=== PATIENT | female | born 1970 ===

== ENCOUNTER 2016-11-02 22:19 | Inpatient (IN) | payer MEDICAID, OTHER ==
[2016-11-02 22:19] VITALS: BMI 19.5
--- NOTE | 2016-11-02 23:27 | ED PDOC ---
HPI: Psych/Substance Abuse Time Seen by Provider: 11/02/16 23:06 Chief Complaint (Nursing): Psychiatric Evaluation Chief Complaint (Provider): Depression History Per: Patient History/Exam Limitations: no limitations Onset/Duration Of Symptoms: Days (21) Current Symptoms Are (Timing): Still Present Suicide/Self Injury Attempted (Context): None Modifying Factor(s): None Severity: Moderate Associated Symptoms: Depression, Suicidal Thoughts. denies: Suicidal Plan Involuntary Hold By: None Additional History Per: Patient Additional Complaint(s): This is a 46 y/o female with history of chronic depression, who presents to the ED this evening complaining of depression x3 weeks. She reports a history of depression, prescribed Zoloft, and was in the care of psychiatry. However, her insurance was discontinued an unknown time ago and she has not been seen by psychiatry or been taking Zoloft as prescribed for that time. Patient reports some suicidal thoughts, none at this time, and denies ever having a plan. She denies any medical complaints. Past Medical History Vital Signs: Last Vital Signs Temp 99.2 F 11/02/16 22:31 Pulse 92 H 11/02/16 22:31 Resp 16 11/02/16 22:31 BP 140/85 11/02/16 22:31 Pulse Ox 98 11/02/16 22:31 - Medical History PMH: Arthritis, Asthma, COPD, Depression, Migraine, Peripheral Edema, Rheumatoid Arthritis, Sleep Apnea (NO C PAP), TIA (LEFT SIDED WEAKNESS ), Chronic Pain (neck) Denies: Chronic Kidney Disease Comment Only: Fractures (TOES) - Surgical History Surgical History: Appendectomy Other surgeries: Tubal Ligation - Family History Family History: States: Unknown Family Hx - Social History Current smoker - smoking cessation education provided: No (Quit 08/03/16) Alcohol: None Drugs: Denies - Immunization History Hx Tetanus Toxoid Vaccination: No Hx Influenza Vaccination: No Hx Pneumococcal Vaccination: No - Allergies Allergies/Adverse Reactions: Allergies Allergy/AdvReac Type Severity Reaction Status Date / Time shellfish derived Allergy RASH Verified 11/02/16 22:31 Review of Systems ROS Statement: Except As Marked, All Systems Reviewed And Found Negative Psych: Positive for: Depression, Suicidal ideation Physical Exam - Reviewed Nursing Documentation Reviewed: Yes Vital Signs Reviewed: Yes - Physical Exam Appears: Positive for: Well, Non-toxic, No Acute Distress Head Exam: Positive for: ATRAUMATIC, NORMAL INSPECTION, NORMOCEPHALIC Skin: Positive for: Normal Color, Warm, DRY Eye Exam: Positive for: Normal appearance, EOMI, PERRL ENT: Positive for: Normal ENT Inspection Neck: Positive for: Normal, Painless ROM Cardiovascular/Chest: Positive for: Regular Rate, Rhythm Respiratory: Positive for: CNT, Normal Breath Sounds Gastrointestinal/Abdominal: Positive for: Normal Exam, Bowel Sounds, Soft Back: Positive for: Normal Inspection Extremity: Positive for: Normal ROM Neurologic/Psych: Positive for: Alert, Oriented, Other (Calm and cooperative. ) - Laboratory Results Result Diagrams: 11/03/16 02:59 11/03/16 02:59 - ECG O2 Sat by Pulse Oximetry: 98 (RA) Pulse Ox Interpretation: Normal Medical Decision Making Medical Decision Making: Initial Impression: Depression Initial Plan: - Crisis evaluation for safety and risk level for suicidal behavior. Vital signs are stable. Labs reviewed. In my opinion there are no current acute medical conditions that contraindicate the placement of this patient in a psychiatric unit. Scribe Attestation: Documented by Nicky Bautista, acting as a scribe for Abhinav Ac MD. Scribe Attestation: All medical record entries made by the Scribe were at my direction and personally dictated by me. I have reviewed the chart and agree that the record accurately reflects my personal performance of the history, physical exam, medical decision making, and the department course for this patient. I have also personally directed, reviewed, and agree with the discharge instructions and disposition. Disposition - Clinical Impression Clinical Impression: Bipolar affective disorder - Patient ED Disposition Is Patient to be Admitted: Yes Doctor Will See Patient In The: Hospital Counseled Patient/Family Regarding: Studies Performed, Diagnosis - Disposition Disposition Time: 03:32 Condition: FAIR - Pt Status Changed To: Hospital Disposition Of: Inpatient - Admit Certification Admit to Inpatient:: After my assessment, the patient will require hospitalization for at least two midnights. This is because of the severity of symptoms shown, intensity of services needed, and/or the medical risk in this patient being treated as an outpatient. - POA Present On Arrival: None
[2016-11-03 03:06] LABS: BASO # 0.1 K/uL (0.0-0.2); BASO % 1.2 % (0.0-2.0); EOS # 0.1 K/uL (0.0-0.7); HEMATOCRIT 31.2 % (34.0-47.0); LYMPH % 43.7 % (20.0-40.0); MEAN CELL VOLUME 89.3 fl (81.0-99.0); MEAN CORPUSCULAR HEMOGLOBIN 30.5 pg (27.0-31.0); MEAN CORPUSCULAR HGB CONC 34.2 g/dL (33.0-37.0); MONO # 0.7 K/uL (0.0-0.8); MONO % 10.1 % (0.0-10.0); NEUT # 2.9 K/uL (1.8-7.0); NRBC % 0.2 % (0.0-0.0); RED CELL DISTRIBUTION WIDTH 14.9 % (11.5-14.5); WHITE BLOOD COUNT 6.8 K/uL (4.8-10.8)
[2016-11-03 03:14] LABS: CHLORIDE 102 mmol/L (98-107); SODIUM 140 mmol/l (132-148)
[2016-11-03 03:15] LABS: POTASSIUM 3.7 MMOL/L (3.6-5.0)
[2016-11-03 03:17] LABS: CARBON DIOXIDE 28 mmol/L (22-30); GFR AFRICAN-AMERICAN > 60
[2016-11-03 03:18] LABS: ALCOHOL SERUM < 10 mg/dl (0-10); BLOOD UREA NITROGEN 13 mg/dl (7-17); CALCIUM 9.1 mg/dL (8.4-10.2); GLUCOSE,RANDOM 91 mg/dL (65-105)
[2016-11-03] MEDS ORDERED: Alum-Mag Hydrox-Simethicone Susp (30 mL) PO PRN (05:45)
[2016-11-03] MEDS ORDERED: DiphenhydrAMINE 50 mg/ml Inj IM PRN (05:45)
[2016-11-03] MEDS ORDERED: Magnesium Hydroxide Susp 30 ml UD PO PRN (05:45)
[2016-11-03] MEDS ORDERED: Pneumococcal 23-Valent Vaccine IM ONE (07:02)
--- NOTE | 2016-11-03 08:26 | CARD ---
APPROVED REPORT EKG Measurement Heart [id number] <Conclusion> Normal sinus rhythm Normal ECG
[2016-11-03 08:29] LABS: T4 4.65 ug/dl (5.5-11.0)
[2016-11-03 08:43] LABS: THYROID STIMULATING HORMONE 59.8 mIU/ML (0.46-4.68)
[2016-11-03 09:01] LABS: IRON 42 ug/dL (37-170)
--- NOTE | 2016-11-03 09:28 | RAD ---
PROCEDURE: CHEST RADIOGRAPH, 1 VIEW HISTORY: clearance COMPARISON: Comparison is made to the previous study dated 06/20/2016 FINDINGS: LUNGS: Clear. PLEURA: No pneumothorax or pleural fluid seen. CARDIOVASCULAR: Normal. OSSEOUS STRUCTURES: No significant abnormalities. VISUALIZED UPPER ABDOMEN: Normal. OTHER FINDINGS: None. IMPRESSION: No active disease.
[2016-11-03 12:30] LABS: CHOLESTEROL 204 mg/dL (0-199)
--- NOTE | 2016-11-03 18:39 | PCM.PSYCH ---
Initial Psychiatric Evaluation - Initial Psychiatric Evaluation Chief Complaint (in patient's own words): was feeling depressed came to emergency room suicidal thoughts without plan Patient's Reaction to Hospitalization: voluntary History of Present Illness and Precipitating Events: presented to [facility] via [facility] er after self presentation for feelings of depression and passing suicidal thoughts, reports was being treated by opd psychiatrist with sertraline 25mg po had stopped 2nd to changes insurance. reportedly was receiving benefits 2nd changes in [employer] [facility] [employer]-reportedly had not been working 2nd to chronic neck and back pain reportedly began after working lifting boxes. Current Medications: Active Medications Generic Name Dose Route Start Last Admin Trade Name Freq PRN Reason Stop Dose Admin Acetaminophen 650 mg 11/03/16 05:45 Tylenol 325mg Tab PO Q4 PRN Pain, moderate (4-7) Al Hydrox/Mg Hydrox/Simethicone 30 ml 11/03/16 05:45 Maalox Plus 30 Ml PO Q4 PRN Dyspepsia Diphenhydramine HCl 50 mg 11/03/16 05:45 Benadryl PO Q6 PRN Extrapyramidal Symptoms Diphenhydramine HCl 50 mg 11/03/16 05:45 Benadryl IM Q6 PRN Extrapyramidal S/S Unable PO Diphenhydramine HCl 50 mg 11/03/16 05:49 Benadryl PO HS PRN Sleep Haloperidol 5 mg 11/03/16 05:45 Haldol PO Q4 PRN Agitation Haloperidol Lactate 5 mg 11/03/16 05:45 Haldol IM Q4 PRN Agitation, Unable to Take PO Lorazepam 2 mg 11/03/16 05:45 Ativan PO Q4 PRN Anxiety/Agitation Lorazepam 2 mg 11/03/16 05:45 Ativan IM Q4 PRN Anxiety/Agitation,Unable PO Magnesium Hydroxide 30 ml 11/03/16 05:45 Milk Of Magnesia PO HS PRN Constipation Sertraline HCl 25 mg 11/03/16 22:00 Zoloft PO DAILY JACK Past Psychiatric History - Past Psychiatric History Prior Professional Help: opd outpt psychiatry Explanation of prior treatment: started seeing community based psychiatrist for depression 2nd changes in lof and reported chronic pain History of Abuse: defers History of ETOH/Drug Use: reports hx of taking various pain medications related to reported hx of neck and back pain Pertinent Medical Hx (Current Medical&Sleep Prob, Allergies): Allergies Allergy/AdvReac Type Severity Reaction Status Date / Time shellfish derived Allergy RASH Verified 11/02/16 22:31 No Known Home Med 11/03/16 Review of Systems - Musculoskeletal Musculoskeletal: Back Pain Additional comments: neck pain - Psychiatric Psychiatric: Depression, Suicidal Ideation Additional comments: contracts for safety Mental Status Examination - Personal Presentation Personal Presentation: Looks stated age, Looks older than stated age - Affect Affect: Constricted - Motor Activity Motor Activity: Calm, Psychomotor Retardation - Reliability in Providing Information Reliability in Providing Information: Fair - Speech Speech: Organized - Mood Mood: Depressed - Formal Thought Process Formal Thought Process: No Impairment - Cognitive Functions Orientation: Person, Place, Situation Sensorium: Alert Attention/Concentration: Attentive Judgement: Imparied, as evidence by: Other - Risk Risk: Suicidal Additional comments: contracts for safety - Strength & Assets Inventory Strength & Assets Inventory: Cooperative - Limitations Additional comments: chronic pain, not receiving benefits DSM 5 DX - DSM 5 DSM 5 Diagnosis: 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 chronic pain neck and back - Recommended/Plan of Treatment Treatment Recommendations and Plan of Treatment: admission per attending md vital signs and clinical observations per protocol and per clinical status start sertraline 25mg po daily adjust medications per status endocrine consult abnormalities in thyroid function tests hospitalist consult discharge planning in progress Projected ELOS: 5-7 days Prognosis: guarded Discharge Plan and Discharge Criteria: adherence with treatment plan denial of suicidal ideations - Smoking Cessation Smoking Cessation Initiated: No Reason for not providing: deferred
[2016-11-03 22:39] LABS: FOLATE 19.7 ng/mL
--- NOTE | 2016-11-04 08:13 | CON ---
DATE: 11/03/2016 ROOM: 313. HISTORY OF PRESENT ILLNESS: This is a 46-year-old female with major depressive disorder and suicidal ideations admitted now for closer psychiatric evaluation and management, and is also being referred for endocrine evaluation because of abnormal thyroid function studies. PAST MEDICAL HISTORY: History of major depression with previous admissions for exacerbations of the same. She has been on multiple psychotropic medications at this time. She also admits to previous b outs of suicidal ideations and gestures as noted. History of cervical and lumbar disk disease with s evere cervicalgia and lumbago with moderate lower back pain as noted. FAMILY HISTORY: Positive for hypertension and diabetes. No known thyroid endocrinopathy. SOCIAL HISTORY: The patient has supportive family. Admits to smoking half a pack a day for some yea rs now. REVIEW OF SYSTEMS: As mentioned above, admits to generalized body weakness with easy fatigability an d tiredness and suboptimal energy level. Also admits to marked cold intolerance with episodic dizzin ess and lightheadedness, worse on the day of admission. No chest pains or palpitations but admits to progressive shortness of breath, especially on exertion, with paroxysmal nocturnal dyspnea. Her ora l intake has been variable with nausea, dyspepsia, and vague upper abdominal pains with habitual cons tipation. PHYSICAL EXAMINATION: GENERAL: This is an average built female in no apparent distress. VITAL SIGNS: Blood pressure of 140/80, pulse of 70 beats per minute and regular, temperature 98, res pirations 20. Height is 5 feet 4 inches. Weight is 126 pounds. HEENT: Head normocephalic. Eyes anicteric with pink conjunctivae. Fundoscopy not possible at this time. Ears, nose and throat otherwise normal. NECK: Supple. No carotid bruits. Thyroid gland shows mild diffuse thyromegaly which is firm and no ntender, with no overt thyroid bruits or any cervical adenopathy. CARDIOPULMONARY: There is an adynamic precordium. S1, S2 is rapid and regular. LUNGS: Show scattered rhonchi. ABDOMEN: Flat, soft with positive bowel sounds. EXTREMITIES: No peripheral edema. Pulses are +2 bilaterally. LABORATORY DATA: Chemistries showed a BUN of 13, sodium 140, potassium 3.7, chloride 102, CO2 of 28, glucose 91, and creatinine 0.7. Her free T4 is 0.50 with a total T4 of 4.65 and a TSH of 59.80. ASSESSMENT: This is a 46-year-old female with overt hypothyroidism of a moderate degree historically , clinically and biochemically as noted thereof. This is most likely related to underlying autoimmun e thyroiditis, and will send off thyroid antibodies accordingly. PLAN OF MANAGEMENT: Will also start her right away on levothyroxine replacement therapy given as 100 mcg once daily before breakfast. Will obtain serial chemistries and supplement accordingly as verónica burgess. Will add a comprehensive thyroid hormonal profile for tomorrow with a total and free T4 and TSH w ith a thyroid peroxidase antibody and a thyroglobulin antibody which will confirm and/or negate the p resence of thyroid autoimmunity. We will follow and advise accordingly. Will start her right away t omorrow on levothyroxine given at 100 mcg once daily before breakfast as ordered, and will titrate in crementally as indicated to optimize metabolic control. Will follow. Dominga Villegas MD cc: [id number] TT: 11/04/2016 08:12:46 Confirmation # [id number] Dictation # [id number] chela
[2016-11-04 08:22] LABS: ALB/GLOB RATIO 1.2 (1.0-2.1); ALKALINE PHOSPHATASE 73 U/L (38-126); ALT/SGPT 28 U/L (9-52); AST/SGOT 22 U/L (14-36); BILIRUBIN,TOTAL 0.6 mg/dl (0.2-1.3); BLOOD UREA NITROGEN 13 mg/dl (7-17); CALCIUM 8.9 mg/dL (8.4-10.2); CARBON DIOXIDE 26 mmol/L (22-30); CHLORIDE 106 mmol/L (98-107); GFR AFRICAN-AMERICAN > 60; GLUCOSE,RANDOM 88 mg/dL (65-105); SODIUM 142 mmol/l (132-148); TOTAL PROTEIN 7.3 G/DL (6.3-8.2)
[2016-11-04 08:37] LABS: T4 4.83 ug/dl (5.5-11.0)
[2016-11-04] MEDS: Levothyroxine 100 MCG TAB PO SCH (08:45)
--- NOTE | 2016-11-04 13:27 | CP.PCM.CON ---
History of Present Illness - History of Present Illness History of Present Illness: Hospitalist Consult H&P (Patient seen and examined at 1:15 PM 11/04/16 Psychiatry 313-1) 46 year old female who presented to [facility] ER for complaints of worsening Depression and Suicide Ideation. She was admitted to the In-Patient Psychiatry Unit Currently upon FULL ROS: Chest tightness during the night when awakening from sleep but not now Generalized Headache that is now better after taking Ibuprofen Chronic Neck/Back pain that is controlled at the moment Mild Lightheadedness that comes and goes NO chest pain, NO palpitations, NO SOB/Cough/Whezzing, NO dysphagia/odynophagia , NO abdominal pain, NO n/v/d/c, NO black/blood stools, NO burning/pain with urination, NO headaches, NO new changes in vision/eye pain, NO new changes in hearing/ear pain, NO paresthesias, NO edema PMHx: Migraines, Chronic Neck/Back Pain (being followed by Neurologist Dr. 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 Lora's office) for the Chronic Neck/Back Pain but not since September 2016 as she lost her insurance Social Hx: Lives with Mom and Son, NOT working since 2007, (+) Tobacco: 20 years on and off 1 pack per day with having quit 08/03/16, NO alcohol, NO illiicit drugs Family Hx: Son (healthy), Mom (Breast CA, HTN, DM2), Dad (Prostate issues), Brother (Asthma, DM2), Sister (Cervical CA), Sister (Liver Cirrhosis secondary to alcohol/drug abuse) HEENT: NCA, EOMI, PERRLA, NO cervical lymphadenopathy, NO thyromegaly, Pharynx is without erythema/exudate, Oral Mucosa and Nasal Turbinates are moist Cardiology: NS1 and NS2, NO M/R/G Respiratory: CTA B/L, NO R/R/W GI: BS x 4, Soft, NT, ND, NO HSM, NO guarding/rebound tenderness Ext: NO edema, Pulses are strong and equal, Capillary Refill is 2 seconds Neurology: CN II through XII are grossly intact Assessment and Plan: 1) Abnormal Thyroid Studies Free T4 is low at 0.51 T4 is low at 4.83 TSH is high at 19.90 Consistent with Hypothyroidism and this was explained to patient Endocrine Dr. Neris Villegas has started Levothyroxine 100 mcg PO 1x/day and patient was made aware 2). Chronic Pain Neck/Back Controlled for now on Ibuprofen 400 mg PO Q6H PRN Pain 3). Migraine BENTLEY Controlled for now on Ibuprofen 400 mg PO Q6H PRN BENTLEY Explained to patient that if she does ask for the Iboprofen that she should have it with some food and then make sure that she drinks plenty of water to flush it out of her system 4). Major Depressive Disorder without Psychosis Treatment as per Psychiatry Please note that a consultation was made with Medical Liaison to help patient apply for [facility] for [facility]. Past Patient History - Past Medical History & Family History Past Medical History?: Yes - Past Social History Alcohol: None Drugs: Denies - CARDIAC Hx Hypertension: No - PULMONARY Hx Respiratory Disorders: Yes Hx Asthma: Yes Hx Chronic Obstructive Pulmonary Disease (COPD): Yes - NEUROLOGICAL Hx Neurological Disorder: Yes - HEENT Hx HEENT Problems: No - RENAL Hx Chronic Kidney Disease: No - ENDOCRINE/METABOLIC Hx Endocrine Disorders: No - HEMATOLOGICAL/ONCOLOGICAL Hx Blood Disorders: No - INTEGUMENTARY Hx Dermatological Problems: No - MUSCULOSKELETAL/RHEUMATOLOGICAL Hx Musculoskeletal Disorders: No Hx Arthritis: Yes Hx Back Pain: Yes Hx Falls: Yes Hx Rheumatoid Arthritis: Yes - GASTROINTESTINAL Hx Gastrointestinal Disorders: Yes - GENITOURINARY/GYNECOLOGICAL Hx Genitourinary Disorders: No - PSYCHIATRIC Hx Bipolar Disorder: Yes Hx Depression: Yes Hx Substance Use: No - SURGICAL HISTORY Hx Appendectomy: Yes Hx Tubal Ligation: Yes - ANESTHESIA Hx Anesthesia: Yes Hx Anesthesia Reactions: No Hx Malignant Hyperthermia: No Has any member of the family had a problem w/ anesthesia?: No Meds Allergies/Adverse Reactions: Allergies Allergy/AdvReac Type Severity Reaction Status Date / Time shellfish derived Allergy RASH Verified 11/02/16 22:31 - Medications Medications: Current Medications Acetaminophen (Tylenol 325mg Tab) 650 mg PO Q4 PRN PRN Reason: Pain, moderate (4-7) Al Hydrox/Mg Hydrox/Simethicone (Maalox Plus 30 Ml) 30 ml PO Q4 PRN PRN Reason: Dyspepsia Diphenhydramine HCl (Benadryl) 50 mg PO Q6 PRN PRN Reason: Extrapyramidal Symptoms Diphenhydramine HCl (Benadryl) 50 mg IM Q6 PRN PRN Reason: Extrapyramidal S/S Unable PO Diphenhydramine HCl (Benadryl) 50 mg PO HS PRN PRN Reason: Sleep Haloperidol (Haldol) 5 mg PO Q4 PRN PRN Reason: Agitation Haloperidol Lactate (Haldol) 5 mg IM Q4 PRN PRN Reason: Agitation, Unable to Take PO Ibuprofen (Motrin Tab) 400 mg PO Q6 PRN PRN Reason: Headache Last Admin: 11/04/16 11:13 Dose: 400 mg Levothyroxine Sodium (Synthroid) 100 mcg PO DAILY@0630 [facility] Last Admin: 11/04/16 08:45 Dose: 100 mcg Lorazepam (Ativan) 2 mg PO Q4 PRN PRN Reason: Anxiety/Agitation Lorazepam (Ativan) 2 mg IM Q4 PRN PRN Reason: Anxiety/Agitation,Unable PO Magnesium Hydroxide (Milk Of Magnesia) 30 ml PO HS PRN PRN Reason: Constipation Sertraline HCl (Zoloft) 25 mg PO DAILY [facility] Last Admin: 11/04/16 08:45 Dose: 25 mg Results - Vital Signs Recent Vital Signs: Last Vital Signs Temp 97.8 F 11/04/16 06:00 Pulse 74 11/04/16 06:00 Resp 19 11/04/16 06:00 BP 109/64 11/04/16 06:00 Pulse Ox 98 11/03/16 03:56 - Labs Result Diagrams: 11/03/16 02:59 11/04/16 07:52 Labs: Laboratory Results - last 24 hr 11/03/16 11/04/16 07:28 07:52 Sodium 142 Potassium 5.0 Chloride 106 Carbon Dioxide 26 Anion Gap 15 BUN 13 Creatinine 0.7 Est GFR ( Amer) > 60 Est GFR (Non-Af Amer) > 60 Random Glucose 88 Calcium 8.9 Total Bilirubin 0.6 AST 22 ALT 28 Alkaline Phosphatase 73 Total Protein 7.3 Albumin 3.9 Globulin 3.4 Albumin/Globulin Ratio 1.2 Folate 19.7 Free T4 0.51 L Thyroxine (T4) 4.83 L TSH 3rd Generation 19.90 H RPR Nonreactive
--- NOTE | 2016-11-04 14:23 | PN ---
DATE: 11/04/2016 ROOM: 313 SUBJECTIVE: This is a 46-year-old female with recent behavioral changes related to underlying major depression and associated suicidal ideation and is now being followed closely in the psychiatric unit for closer evaluation and management and is also being followed closely for metabolic management of overt hypothyroidism as noted thereof. Her latest chemistry showed a BUN of 13, sodium 142, potassiu m 5.0, chloride 106, CO2 26, glucose 88, and creatinine 0.7. Her repeat thyroid study showed a T4 of 4.83 mcg/dL with a free T4 of 0.51, both of which are slightly low at this time and also with an ass ociated TSH of 19.90 which is a remarkable improvement from the initial level of 59.80. ASSESSMENT: This is a 46-year-old female with overt hypothyroidism, both historically, clinically, a nd biochemically, most likely related to underlying autoimmune thyroiditis, i.e., Demarcus's thyroid itis and has been started on levothyroxine replacement therapy for which she is tolerating fairly wel l at this time. PLAN OF MANAGEMENT: As discussed with the patient and staff, we will continue the low-dose levothyro xine replacement therapy given as 100 mcg once daily as ordered. We will titrate incrementally as in dicated to optimize metabolic control. We will also await the thyroid antibodies, i.e., the thyroglo bulin antibody and thyroid peroxidase antibody which will confirm and/or negate the presence of under lying thyroid autoimmunity. We will obtain serial thyroid studies accordingly. We will follow. Dominga Villegas MD cc: [id number] TT: 11/04/2016 14:22:40 Confirmation # [id number] Dictation # [id number] tn
--- NOTE | 2016-11-04 17:47 | PCM.PYCHPN ---
Psychiatric Progress Note - Psychiatric Progress Note Patient seen today, length of contact: chart reviewed case discussed with team Patient Chief Complaint: was feeling depressed came to emergency room suicidal thoughts without plan, has re Problems Identified/Issues Discussed: alteration in mood alteration in self care potential alteration in safety Medical Problems: started seeing community based psychiatrist for depression 2nd changes in lof and reported chronic pain Diagnostic Results: per psychiatry per medicine per nursing per social work per recreational therapy DSM 5 Symptoms Update: alteration in mood Medication Change: No Medical Record Reviewed: Yes Consults ordered or reviewed: hospitalist Mental Status Examination - Cognitive Function Orientation: Person, Place, Situation Attention: WNL Concentration: WNL Association: [facility] Fund of Knowledge: [facility] Decription of patient's judgement and insights: impaired - Mood Mood: Depressed - Affect Affect: Constricted - Speech Speech: Soft - Formal Thought Process Formal Thought Process: No Impairment - Suicidal Ideation Plan: ideation contracts for safety - Homicidal Ideation Homicidal Ideation: No Goal/Treatment Plan - Goal/Treatment Plan Need for Continued Stay: Remain at risks for inpatient hospitalization, Severe depression anxiety Progress Toward Problem(s) and Goals/Treatment Plan: admission per attending md vital signs and clinical observations per protocol and per clinical status pt seen by hospitalist adjust medications per status endocrine consult abnormalities in thyroid function tests hospitalist consult discharge planning in progress Estimated Date of D/C: 11/10/16 - Smoking Cessation Smoking Cessation Initiated: No Reason for not providing: deferred
[2016-11-05] MEDS: Levothyroxine 100 MCG TAB PO SCH (06:07)
[2016-11-05 09:37] LABS: RBC URINE 2 /hpf (0-3); URINE BILIRUBIN NEGATIVE (NEGATIVE); URINE BLOOD NEGATIVE (NEGATIVE); URINE COLOR YELLOW (YELLOW); URINE GLUCOSE (UA) NEG (Normal); URINE KETONE NEGATIVE (NEGATIVE); URINE LEUKOCYTE ESTERASE NEG Leu/uL (Negative); URINE PROTEIN NEGATIVE (NEGATIVE); URINE UROBILINOGEN 0.2-1.0 mg/dL (0.2-1.0); WBC URINE 3 /hpf (0-5)
--- NOTE | 2016-11-05 17:07 | PN ---
DATE: 11/05/2016 ROOM: 313 psychiatry. SUBJECTIVE: This is a 46-year-old female with recent overt hypothyroidism and is now being followed closely for metabolic management. She also has significant major depression with behavioral disturba nces as noted, but is being followed closely in the psychiatric unit for closer evaluation and manage ment. She remains clinically euthyroid, but biochemically has evidence of moderate hypothyroidism as noted. Her latest chemistry showed a BUN of 13, sodium 142, potassium 5.0, chloride 106, CO2 26, gl ucose 88 and creatinine 0.7. Her latest thyroid study showed a T4 of 4.83 with a TSH of 19.90 and a free T4 of 0.51. So at this time, we will continue the same levothyroxine dosing given as 100 mcg da paola before breakfast as ordered. We will repeat the thyroid studies and adjust her dose accordingly to optimize metabolic control. We will obtain serial chemistries and supplement accordingly as verónica burgess. We will follow. Dominga Villegas MD cc: [phone] TT: 11/05/2016 17:07:14 Confirmation # [id number] Dictation # [id number] marielos
--- NOTE | 2016-11-05 20:21 | CP.PCM.PCO ---
Physician Communication Note - Physician Communication Note Physician Communication Note: Called with Urinalysis results .
--- NOTE | 2016-11-05 21:23 | PCM.PYCHPN ---
Psychiatric Progress Note - Psychiatric Progress Note Patient seen today, length of contact: chart reviewed case discussed with team Patient Chief Complaint: was feeling depressed came to emergency room suicidal thoughts without plan, has reportedly been improving, feeling somewhat less depressed sleeping better staff report pt has been adherent with medications Problems Identified/Issues Discussed: alteration in mood alteration in self care potential alteration in safety Medical Problems: started seeing community based psychiatrist for depression 2nd changes in lof and reported chronic pain Diagnostic Results: per psychiatry per medicine per nursing per social work per recreational therapy DSM 5 Symptoms Update: alteration in mood Medication Change: No Medical Record Reviewed: Yes Mental Status Examination - Cognitive Function Orientation: Person, Place, Situation Attention: WNL Concentration: WNL Association: WNL Fund of Knowledge: WN Decription of patient's judgement and insights: impaired - Mood Mood: Depressed - Affect Affect: Constricted - Speech Speech: Soft - Formal Thought Process Formal Thought Process: No Impairment - Homicidal Ideation Homicidal Ideation: No Goal/Treatment Plan - Goal/Treatment Plan Need for Continued Stay: Remain at risks for inpatient hospitalization, Severe depression anxiety Progress Toward Problem(s) and Goals/Treatment Plan: admission per attending md vital signs and clinical observations per protocol and per clinical status pt seen by hospitalist adjust medications per status endocrine consult abnormalities in thyroid function tests hospitalist consult discharge planning in progress Estimated Date of D/C: 11/10/16 - Smoking Cessation Smoking Cessation Initiated: No Reason for not providing: deferred
[2016-11-06] MEDS: Levothyroxine 100 MCG TAB PO SCH (06:11)
--- NOTE | 2016-11-06 16:15 | PCM.PYCHPN ---
Psychiatric Progress Note - Psychiatric Progress Note Patient seen today, length of contact: chart reviewed case discussed with team Patient Chief Complaint: was feeling depressed came to emergency room suicidal thoughts without plan, has reportedly been improving, feeling less depressed sleeping better staff report pt has been adherent with medications Problems Identified/Issues Discussed: alteration in mood alteration in self care potential alteration in safety Medical Problems: started seeing community based psychiatrist for depression 2nd changes in lof and reported chronic pain Diagnostic Results: per psychiatry per medicine per nursing per social work per recreational therapy DSM 5 Symptoms Update: alteration in mood adjustment disorder chronic pain chronic pain Medication Change: No Medical Record Reviewed: Yes Mental Status Examination - Cognitive Function Orientation: Person, Place, Situation Attention: WNL Concentration: WNL Association: WNL Fund of Knowledge: [facility] Decription of patient's judgement and insights: impaired - Mood Mood: Depressed - Affect Affect: Constricted - Speech Speech: Soft - Formal Thought Process Formal Thought Process: No Impairment - Suicidal Ideation Suicidal Ideation: No - Homicidal Ideation Homicidal Ideation: No Goal/Treatment Plan - Goal/Treatment Plan Need for Continued Stay: Remain at risks for inpatient hospitalization, Severe depression anxiety Progress Toward Problem(s) and Goals/Treatment Plan: admission per attending md vital signs and clinical observations per protocol and per clinical status pt seen by hospitalist adjust medications per status discharge planning in progress Estimated Date of D/C: 11/10/16 - Smoking Cessation Smoking Cessation Initiated: No Reason for not providing: deferred
[2016-11-06 16:26] VITALS: TEMP 97.3
--- NOTE | 2016-11-06 17:18 | PCM.PYCHPN ---
Psychiatric Progress Note - Psychiatric Progress Note Patient seen today, length of contact: chart reviewed case discussed with team Patient Chief Complaint: pt seen in unit, then in room, reports sleeping and eating better. depression is improving. staff report pt has been adherent with treatment, seen in milieu therapy, verbalizes upon discharge would like to continue to follow up in [facility] [place]. Problems Identified/Issues Discussed: alteration in mood alteration in self care potential alteration in safety Medical Problems: started seeing community based psychiatrist for depression 2nd changes in lof and reported chronic pain-pain is improving Diagnostic Results: per psychiatry per medicine per nursing per social work per recreational therapy DSM 5 Symptoms Update: alteration in mood alteration in self care chronic pain Medication Change: No Medical Record Reviewed: Yes Mental Status Examination - Cognitive Function Orientation: Person, Place, Situation Attention: WNL Concentration: WNL Association: WNL Fund of Knowledge: WNL - Mood Mood: Depressed - Affect Affect: Constricted - Speech Speech: Soft - Formal Thought Process Formal Thought Process: No Impairment - Suicidal Ideation Suicidal Ideation: No - Homicidal Ideation Homicidal Ideation: No Goal/Treatment Plan - Goal/Treatment Plan Need for Continued Stay: Remain at risks for inpatient hospitalization, Severe depression anxiety Progress Toward Problem(s) and Goals/Treatment Plan: admission per attending md vital signs and clinical observations per protocol and per clinical status pt seen by hospitalist adjust medications per status discharge planning in progress-requests to follow up in [place] for aftercare Estimated Date of D/C: 11/10/16 - Smoking Cessation Smoking Cessation Initiated: No Reason for not providing: pt deferrs
[2016-11-06 20:25] VITALS: O2SAT 99
[2016-11-07 05:54] VITALS: BP 104/56; PULSE 74; RESP 19
[2016-11-07] MEDS: Levothyroxine 100 MCG TAB PO SCH (09:05)
--- NOTE | 2016-11-07 10:04 | PCM.PYCHDC ---
Mental Status Examination - Mental Status Examination Orientation: Person, Place, Situation Memory: Intact Mood: Anxious Affect: Broad Speech: Appropriate Attention: WNL Concentration: WNL Association: WNL Fund of Knowledge: WNL Formal Thought Process: No Impairment Description of patient's judgement and insight: fair Psychotic Thoughts and Behaviors: denies a/v hallucinations Suicidal Ideation: No Current Homicidal Ideation?: No Discharge Summary - Discharge Note Reason for Hospitalization: see admission assessment for details. Psychiatric History (includes Medical, Family, Personal Hx): see admission assessment Consultations:: List each consultation separately and include: 1. Reason for request. 2. Findings. 3. Follow-up Consultations: seen by medical lab assistant Summary of Hospital Course include:: 1. Description of specific treatment plan utilized for patients during their course of treatmen. 2. Summarize the time- course for resolution of acute symptoms and/or regressed behaviors. 3. Describe issues identified and worked on during hospitalization. 4. Describe medication utilized. 5. Describe medical problems identified and treated. 6. Reassessment of suicide risk Summary of Hospital Course: pt was admitted to [facility] and oriented to the unit. pt was seen by the treatment team on that unit. pt was started on medications and took as prescribed. she was appropriate in groups and her social interactions. she was denying any suicidal or homicidal thoughts and was future oriented and goal directed. she submitted a 48 hour notice to leave the hospital and as she did not meet criteria for involuntary hospitalization she was discharged home. - Final Diagnosis (DSM 5) Condition upon Discharge: FAIR DSM 5: major depression recurrent Disposition: HOME/ ROUTINE Follow-up Treatment Plan: follow up with aftercare as directed take medications as prescribed do not use alcohol, tobacco or other illicit substances call 911 if any suicidal or homicidal thoughts. Prescriptions/Medication Reconciliation: Levothyroxine [Synthroid] 100 mcg PO DAILY@0630 #30 tab Sertraline [Zoloft] 25 mg PO DAILY #30 tab - Smoking Cessation Smoking Cessation Medication prescribed: No Reason for not providing: declined - Antipsychotic Medications Pt discharged on 2 or more routine antipsychotic medications: No
== END 2016-11-07 14:20 | disposition home or self-care (01) | DRG 430 ==
LOC: H.ER 22:19 → H.ERHOLD 11-03 03:30 → H.STEP 11-03 05:42
PROVIDERS: ADMIT Psychiatry & Neurology Psychiatry; ATTEND Psychiatry & Neurology Psychiatry
PROC: GZHZZZZ Group Psychotherapy (ICD-10-PCS; principal; 2016-11-03)
PROC: 3E0234Z Introduction of Serum, Toxoid and Vaccine into Muscle, Percutaneous Approach (ICD-10-PCS; 2016-11-03)
DX: F33.9 Major depressive disorder, recurrent, unspecified (principal); R45.851 Suicidal ideations; J44.9 Chronic obstructive pulmonary disease, unspecified; F41.9 Anxiety disorder, unspecified; Z23 Encounter for immunization; Z91.013 Allergy to seafood; M19.90 Unspecified osteoarthritis, unspecified site; J45.909 Unspecified asthma, uncomplicated; M06.9 Rheumatoid arthritis, unspecified; G89.29 Other chronic pain; E03.9 Hypothyroidism, unspecified; G43.909 Migraine, unspecified, not intractable, without status migrainosus

== ENCOUNTER 2018-02-08 13:26 | Emergency (ER) | payer MEDICAID, OTHER ==
[2018-02-08 13:26] VITALS: BMI 19.5
[2018-02-08 14:09] VITALS: BP 98/60; PULSE 98; RESP 18; TEMP 98.4; O2SAT 100
--- NOTE | 2018-02-08 16:02 | ED PDOC ---
HPI: Eye Injury/Pain Time Seen by Provider: 02/08/18 14:14 Chief Complaint (Nursing): Eye Problem Chief Complaint (Provider): Eye Problem History Per: Patient History/Exam Limitations: no limitations Onset/Duration Of Symptoms: Days (x2) Current Symptoms Are (Timing): Still Present Additional Complaint(s): 47 y/o female presents to the ED with complaints of a right eye problem. Patient states for the past two days she's had bilateral eye redness and discharge. Patient states nephew also has the same symptoms. Patient also reports she has been "losing her voice" since yesterday and feels a pain in her throat when she talks. Denies fever, cough, congestion, shortness of breath, hemoptysis, and visual changes. PMD: None Provided Past Medical History Reviewed: Historical Data, Nursing Documentation, Vital Signs Vital Signs: Last Vital Signs Temp 98.4 F 02/08/18 14:06 Pulse 98 H 02/08/18 14:06 Resp 18 02/08/18 14:06 BP 98/60 L 02/08/18 14:06 Pulse Ox 100 02/08/18 14:06 - Medical History PMH: Asthma, Bipolar Disorder, COPD, Depression, Fractures (TOES), Hypothyroidism, Kidney Stones (PASSED WITHOUT INTERVENTION), Migraine, Peripheral Edema, Rheumatoid Arthritis, Sleep Apnea (NO C PAP), TIA (LEFT SIDED NUMBNESS 2002), Chronic Pain (neck) Denies: Diabetes, Hepatitis, Chronic Kidney Disease - Surgical History Surgical History: Appendectomy - Family History Family History: States: Unknown Family Hx - Immunization History Hx Tetanus Toxoid Vaccination: No Hx Influenza Vaccination: No Hx Pneumococcal Vaccination: No - Home Medications Home Medications: Ambulatory Orders Medication Instructions Recorded Levothyroxine [Synthroid] 100 mcg PO DAILY@0630 #30 tab 11/07/16 Sertraline [Zoloft] 25 mg PO DAILY #30 tab 11/07/16 Albuterol HFA [Ventolin HFA 90 1 puff INH TID 06/11/17 mcg/actuation (8 g)] oxyCODONE/Acetaminophen [Percocet 1 tab PO TID PRN 06/11/17 5/325 mg Tab] Polymyxin/Trimethoprim Sulfate 1 drop BOTHEYES Q3 #1 bottle 02/08/18 [Polytrim Ophth Soln] - Allergies Allergies/Adverse Reactions: Allergies Allergy/AdvReac Type Severity Reaction Status Date / Time acetaminophen [From Percocet] Allergy RASH Verified 02/08/18 14:05 oxycodone [From Percocet] Allergy RASH Verified 02/08/18 14:05 shellfish derived Allergy RASH Verified 02/08/18 14:05 Review of Systems ROS Statement: Except As Marked, All Systems Reviewed And Found Negative Eyes: Positive for: Redness (and discharge). Negative for: Vision Change ENT: Positive for: Throat Pain. Negative for: Nose Congestion Respiratory: Negative for: Cough, Shortness of Breath, Hemoptysis Physical Exam - Reviewed Nursing Documentation Reviewed: Yes Vital Signs Reviewed: Yes - Physical Exam Appears: Positive for: No Acute Distress Skin: Positive for: Normal Color, Warm, Dry Eye Exam: Positive for: Conjunctival injection (bilateral). Negative for: Periorbital swelling, Periorbital tenderness ENT: Positive for: Normal ENT Inspection Cardiovascular/Chest: Positive for: Regular Rate, Rhythm. Negative for: Murmur Respiratory: Positive for: Normal Breath Sounds. Negative for: Respiratory Distress Neurologic/Psych: Positive for: Alert, Oriented (x3). Negative for: Motor/ Sensory Deficits - ECG O2 Sat by Pulse Oximetry: 100 (RA) Pulse Ox Interpretation: Normal Medical Decision Making Medical Decision Making: Time: 1448 Plan: -- Throat Culture -- Rapid Strep Group A Antigen - negative Scribe Attestation: Documented by Belia Cantrell, acting as a scribe for Del Logan PA-C. Provider Scribe Attestation: All medical record entries made by the Scribe were at my direction and personally dictated by me. I have reviewed the chart and agree that the record accurately reflects my personal performance of the history, physical exam, medical decision making, and the department course for this patient. I have also personally directed, reviewed, and agree with the discharge instructions and disposition. Disposition - Clinical Impression Clinical Impression: Conjunctivitis, Laryngitis - Patient ED Disposition Is Patient to be Admitted: No - Disposition Referrals: [facility] Lu[facility] [Outside] Disposition: Routine/Home Disposition Time: 15:00 Condition: STABLE Prescriptions: Polymyxin/Trimethoprim Sulfate [Polytrim Ophth Soln] 1 drop BOTHEYES Q3 #1 bottle Instructions: Laryngitis, Conjunctivitis ([place]) (DC) Forms: [employer] (Arabic) Print Language: SERBIAN
== END 2018-02-08 15:21 | disposition home or self-care (01) ==
LOC: H.ER 13:26
DX: H10.9 Unspecified conjunctivitis (principal); J04.0 Acute laryngitis; Z86.59 Personal history of other mental and behavioral disorders; E03.9 Hypothyroidism, unspecified; J44.9 Chronic obstructive pulmonary disease, unspecified; Z87.442 Personal history of urinary calculi; Z88.5 Allergy status to narcotic agent